=== PATIENT | female | born 1960 | race Caucasian/White ===

== ENCOUNTER 2017-11-22 13:20 | Outpatient (CLI) | payer BC ==
--- NOTE | 2017-11-22 16:03 | CT ---
CT OF THE LEFT HIP 11/22/17 PROVIDED CLINICAL HISTORY: Left hip pain. 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 There is no evidence for asymmetric acetabular linear wear. There is extensive beam hardening artifact about the left hip related to the left hip arthroplasty, obscuring the osseo us structures and soft tissues immediately around the femoral head component. The anterior most screw emanating from the acetabular component is proud from the cortex by about 1.3 cm. Postoperative changes of posterior wall acetabular fracture fixation are noted. There is heterotopic ossification suspected at then posteromedial aspect of the left acetabulum which could produce mass e ffect upon the sciatic neurovascular bundle though the exact relationship between this structure and the sciatic nerve is not clearly defined on this imaging due to beam hardening artifact. No obvious s oft tissue fluid collection. Regional muscular density appears unremarkable. No lytic or blastic lesi ons are seen. No evidence for fracture or other acute osseous abnormality with limitations due to the beam hardening artifact. IMPRESSION: 1. Postoperative changes involving the left hip as described above. 2. 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 Consider MRI if indicated. POS: OFF
== END 2017-11-22 13:21 | disposition home or self-care (01) ==
LOC: SCSCT 13:20
PROVIDERS: ATTEND Orthopaedic Surgery
DX: M25.552 Pain in left hip (principal); Z98.890 Other specified postprocedural states

== ENCOUNTER 2018-09-25 11:01 | Outpatient (CLI) | payer BC | END 2018-09-25 11:02 | disposition home or self-care (01) | LOC: BICMAMMO 11:01 | PROVIDERS: ATTEND Family Medicine | DX: Z12.31 Encounter for screening mammogram for malignant neoplasm of breast (principal); N63.10 Unspecified lump in the right breast, unspecified quadrant; Z80.3 Family history of malignant neoplasm of breast | CPT/HCPCS: 77063; 77067 ==

== ENCOUNTER 2018-10-04 08:16 | Outpatient (CLI) | payer BC ==
--- NOTE | 2018-10-04 11:08 | ULT ---
RIGHT BREAST ULTRASOUND: Date: 10/04/18 HISTORY: Abnormal mammogram. FINDINGS: Correlation is made with mammograms of 09/25/18 and today. Sonographic evaluation of the left upper outer breast demonstrates a slightly irregular hypoechoic no nshadowing nodule at the 11 o'clock position, 3.0 cm from the nipple measuring 7.0 x 7.0 x 3.0 mm. No mammographic correlate is seen. The mass in the posterior aspect of the right upper breast seen on the mammogram is larger than the u ltrasound finding and does not appear to correspond to it. This should be evaluated with surgical exc isional biopsy following needle localization. IMPRESSION: BI-RADS Category 4 - Suspicious abnormality. Recommend ultrasound guided biopsy of the 7.0 mm nodule and a needle localization and excisional biopsy of the larger mammographic finding. Discussed in person with the patient at 0920 hours. POS: OFF
== END 2018-10-04 08:17 | disposition home or self-care (01) ==
LOC: BICMAMMO 08:16
PROVIDERS: ATTEND Family Medicine
DX: N63.10 Unspecified lump in the right breast, unspecified quadrant (principal); Z80.3 Family history of malignant neoplasm of breast
CPT/HCPCS: G0279

== ENCOUNTER → 2018-10-21 | Day surgery (SDC) | payer BC ==
--- NOTE | 2018-10-21 14:36 | ULT ---
RIGHT BREAST ULTRASOUND: Indications: Ultrasound right breast performed prior to scheduled ultrasound guided biopsy procedure. FINDINGS: The previously questioned lesion at 11 o'clock 3 cm from the nipple, right upper outer breast, cannot be reliably reproduced on today's ultrasound. Images through the right upper quadrant appear unremar kable by ultrasound today. Mammograms were reviewed with Dr. Kirby. On the diagnostic tomosynthesis exam, no definite mass or distortion is identified in the upper outer quadrant of the right breast. Findings were discussed with Dr. Davis who is scheduled to see this patient later this week. I recomm end patient have further evaluation with breast MRI. Dr. Davis is in agreement with this plan and christian l order a breast MRI. IMPRESSION: 1. BIRADS 0 - recommend further evaluation with breast MRI prior to biopsy procedure. POS: FABY
== END ==
LOC: BICULT 12:29
PROVIDERS: ATTEND Family Medicine
DX: N63.11 Unspecified lump in the right breast, upper outer quadrant (principal); Z53.8 Procedure and treatment not carried out for other reasons

== ENCOUNTER 2018-11-06 08:03 | Outpatient (CLI) | payer BC ==
--- NOTE | 2018-11-06 14:22 | MRI ---
BILATERAL BREAST MRI WITH AND WITHOUT IV CONTRAST AND EVALUATION ON AN INDEPENDENT WORKSTATION: Date: 11/06/18 HISTORY: Abnormal mammogram. Aunt with breast cancer. FINDINGS: Correlation is made with mammograms of 09/25/18 and 10/04/18, and right breast ultrasounds of 8 and 10/21/18. There are small cysts in the breasts bilaterally (low T1, high T2, and no postcontrast enhancement). No evidence of solid mass or abnormal postcontrast enhancement is seen in either breast. No axillary or internal mammary lymphadenopathy is seen. There are proteinaceous secretions in the left subareolar duct (high T1 signal). IMPRESSION: BIRADS Category 2 - Benign findings. Return to routine annual mammographic screening. This study was interpreted in consultation with Dr. Damien More, who concurs. POS: FABY
== END 2018-11-06 08:04 | disposition home or self-care (01) ==
LOC: BICMRI 08:03
PROVIDERS: ATTEND Surgery
DX: R92.8 Other abnormal and inconclusive findings on diagnostic imaging of breast (principal)
CPT/HCPCS: C8908

== ENCOUNTER 2022-11-17 10:31 | Outpatient (CLI) | payer BC | END 2022-11-17 10:32 | disposition home or self-care (01) | LOC: BICMAMMO 10:31 | PROVIDERS: ATTEND Family Medicine | DX: Z12.31 Encounter for screening mammogram for malignant neoplasm of breast (principal); Z13.820 Encounter for screening for osteoporosis; M81.0 Age-related osteoporosis without current pathological fracture | CPT/HCPCS: 77063; 77067; 77080 ==